=== PATIENT | female | born 1985 | race Caucasian/White ===

== ENCOUNTER 2021-01-27 09:07 | Emergency (ER) | payer OTHER ==
[~2021-01-27 09:07] MED LIST: ETODOLAC500 MG PO
[2021-01-27 10:25] LABS: BILIRUBIN NEGATIVE (NEGATIVE); BLOOD NEGATIVE Ery/uL (NEGATIVE); CLARITY CLEAR (CLEAR); COLOR YELLOW (YELLOW); GLUCOSE (U) NORMAL (NORMAL); LEUKOCYTES NEGATIVE Leu/uL (NEGATIVE); NITRITE NEGATIVE (NEGATIVE); PROTEIN NEGATIVE (NEGATIVE); SPECIFIC GRAVITY 1.025 (1.001-1.030); UROBILINOGEN 0.2 mg/dL (0.2-1.0); pH 5.5 (5.0-9.0)
[2021-01-27] MEDS ORDERED: NAPROXEN500 MG PO (10:41)
[2021-01-27] MEDS ORDERED: CYCLOBENZAPRINE10 MG PO (10:41)
== END 2021-01-27 10:46 | disposition home or self-care (01) ==
LOC: FER 09:07
PROVIDERS: Emergency Medicine
DX: M54.5 Low back pain (principal); F17.210 Nicotine dependence, cigarettes, uncomplicated; Z88.2 Allergy status to sulfonamides; Z98.890 Other specified postprocedural states
CPT/HCPCS: 81003; 99283